=== PATIENT | female | born 1985 | race American Indian/Alaskan Native ===

== ENCOUNTER 2018-03-14 00:45 | Emergency (ER) | payer OTHER ==
[2018-03-14 01:32] VITALS: BMI 45.4
[2018-03-14] MEDS ORDERED: TraMADol/Apap 37.5/325 mg Tab PO STA (01:43)
--- NOTE | 2018-03-14 01:47 | ED PDOC ---
Arrival/HPI - General Historian: Patient - History of Present Illness Time/Duration: Other (see hpi) Quality: Aching Context: Home - General Chief Complaint: Dental Pain Time Seen by Provider: 03/14/18 01:41 - History of Present Illness Narrative History of Present Illness (Text): 03/14/18 01:44 This 32 yo female who denies pmh presents to this ED c/o left lower toothache x 1 day. Patient stated toothache worsen last few hours. Patient made an appointment to see her dentist on Friday. Patient denies sore throat, facial swelling, QUIROGA, fever, cough, or SOB. (Paul Casas) Past Medical History - Provider Review Nursing Documentation Reviewed: Yes - Past History Past History: No Previous - Tetanus Immunization Tetanus Immunization: Unknown - Past Medical History Past Medical History: No Previous - Musculoskeletal/Rheumatological Hx Falls: No - Gastrointestinal Hx Gastroesophageal Reflux: Yes - Genitourinary/Gynecological Hx Genitourinary Disorders: No - Psychiatric Hx Depression: No Hx Emotional Abuse: No Hx Physical Abuse: No Hx Substance Use: No - Past Surgical History Past Surgical History: No Previous - Anesthesia Hx Anesthesia: No - Suicidal Assessment Feels Threatened In Home Enviroment: No Family/Social History - Physician Review Nursing Documentation Reviewed: Yes Family/Social History: Other (noncontributory) Smoking Status: Never Smoked Hx Alcohol Use: Yes Hx Substance Use: No Hx Substance Use Treatment: No Allergies/Home Meds Allergies/Adverse Reactions: Allergies No Known Allergies Allergy (Verified 03/14/18 02:59) Review of Systems - Review of Systems Constitutional: Normal. absent: Fatigue, Weight Change, Fevers, Night Sweats Eyes: Normal ENT: Other (toothache) Respiratory: Normal. absent: SOB, Cough Cardiovascular: Normal. absent: Chest Pain Gastrointestinal: Normal. absent: Abdominal Pain, Nausea, Vomiting Genitourinary Female: Normal Musculoskeletal: Normal. absent: Back Pain, Neck Pain Skin: Normal. absent: Rash Neurological: Normal. absent: Headache, Dizziness, Focal Weakness, Gait Changes , Speech Changes, Facial Droop, Disequilibrium, Seizure Endocrine: Normal Hemo/Lymphatic: Normal Psychiatric: Normal Physical Exam Temperature: Afebrile Blood Pressure: Normal Pulse: Regular Respiratory Rate: Normal Appearance: Positive for: Well-Appearing, Non-Toxic, Comfortable Pain Distress: None Mental Status: Positive for: Alert and Oriented X 3 - Systems Exam Head: Present: Atraumatic, Normocephalic Pupils: Present: PERRL Extroacular Muscles: Present: EOMI Conjunctiva: Present: Normal Mouth: Present: Moist Mucous Membranes, Normal Lips, Normal Tounge, Normal Teeth. No: Drooling, Trismus Pharnyx: Present: Normal. No: ERYTHEMA, EXUDATE, TONSILS ENLARGED Neck: Present: Normal Range of Motion Upper Extremity: Present: Normal Inspection, Normal ROM Lower Extremity: Present: Normal Inspection, Normal ROM Neurological: Present: GCS=15, CN II-XII Intact, Speech Normal, Motor Func Grossly Intact, Normal Sensory Function, Normal Cerebellar Funct, Gait Normal, Memory Normal Skin: Present: Warm, Dry, Normal Color. No: Rashes Lymphatic: No: Cervical Adenopathy Psychiatric: Present: Alert, Oriented x 3, Normal Insight Vital Signs Temp Pulse Resp BP Pulse Ox 03/14/18 03:45 98.7 F 68 18 148/76 97 03/14/18 01:38 98.7 F 83 16 152/102 H 99 Medical Decision Making Re-evaluation Time: 01:48 Reassessment Condition: Re-examined, Improved ED Course and Treatment: 03/14/18 01:47 Re-evaluation. Patient feels better. Discussed results and plan with patient who expresses understanding. All questions answered and there is agreement with the plan to discharge home with instructions. Patient stable for discharge. Return if symptoms persist or worsen. (Paul Casas) - Medication Orders Current Medication Orders: Discontinued Medications Amoxicillin (Amoxil 500 Mg Cap) 500 mg PO STAT STA PRN Reason: Protocol Stop: 03/14/18 01:44 Last Admin: 03/14/18 02:20 Dose: 500 mg Ketorolac Tromethamine (Toradol) 30 mg IM STAT STA Stop: 03/14/18 01:44 Last Admin: 03/14/18 02:21 Dose: 30 mg MAR Pain Assessment Document 03/14/18 02:21 (Rec: 03/14/18 02:21 [id number]) Pain Reassessment Is this a pain reassessment? No Sleep Is patient sleeping during reassessment? No Presence of Pain Presence of Pain Yes Pain Scale Used Pain Scale Used Numeric IM Administration Charges Document 03/14/18 02:21 (Rec: 03/14/18 02:21 [id number]) Charges for Administration # of IM Administrations 1 Tramadol/Acetaminophen (Ultracet 37.5/325 Mg) 1 tab PO STAT STA Stop: 03/14/18 01:44 Last Admin: 03/14/18 02:18 Dose: 1 tab MAR Pain Assessment Document 03/14/18 02:18 (Rec: 03/14/18 02:19 [facility]-[id number]) Pain Reassessment Is this a pain reassessment? No Sleep Is patient sleeping during reassessment? No Presence of Pain Presence of Pain Yes Pain Scale Used Pain Scale Used Numeric Description Description Constant Disposition/Present on Arrival - Present on Arrival Any Indicators Present on Arrival: No History of DVT/PE: No History of Uncontrolled Diabetes: No Urinary Catheter: No History of Decub. Ulcer: No History Surgical Site Infection Following: None - Disposition Have Diagnosis and Disposition been Completed?: Yes Disposition Time: 01:50 Patient Plan: Discharge - Disposition Diagnosis: Toothache Disposition: HOME/ ROUTINE Condition: GOOD Discharge Instructions (ExitCare): Dental Pain (DC) Additional Instructions: Call private doctor for follow up visit in 1-2 days. call private dentist office on Friday for revaluation. Do not drive or operate machinery if you take Vicodin for at least 12 hours. Prescriptions: Chlorhexidine 0.12% [Peridex] 15 ml PO BID #1 bottle Hydrocodone/Acetaminophen [Vicodin Es 7.5-300 mg Tablet] 1 each PO Q4H PRN #10 tablet PRN Reason: Pain, Severe (8-10) Naproxen 500 mg PO BID PRN #14 tab PRN Reason: Pain, Severe (8-10) Referrals: [facility] [Outside] - Follow up with primary [facility] [Outside] - Follow up with primary Forms: [employer] (Angolan), WORK NOTE
[2018-03-14 01:53] VITALS: TEMP 98.7
[2018-03-14 03:46] VITALS: BP 148/76; PULSE 68; RESP 18; O2SAT 97
== END 2018-03-14 03:52 | disposition home or self-care (01) ==
LOC: ED 00:45
DX: K08.89 Other specified disorders of teeth and supporting structures (principal)
CPT/HCPCS: 81025; 96372; 99282; J1885

== ENCOUNTER 2018-03-16 20:28 | Emergency (ER) | payer OTHER ==
[2018-03-16 20:29] VITALS: BMI 45.4
[2018-03-16 21:55] VITALS: BP 185/119; PULSE 82; RESP 17; TEMP 99.1; O2SAT 98
--- NOTE | 2018-03-16 22:01 | ED PDOC ---
Arrival/HPI - General Chief Complaint: Dental Pain Time Seen by Provider: 03/16/18 20:30 Historian: Patient - History of Present Illness Narrative History of Present Illness (Text): 03/16/18 22:00 A 32 year old female presents to the emergency department complaining of left sided toothache. Patient reported to the emergency department three days ago, saw her dentist two days ago. Patient is scheduled to remove tooth tomorrow morning. Patient is taking antibiotics. Patient denies any fever or any other complaints at this time. Symptom Onset: Sudden Symptom Course: Unchanged Activities at Onset: Rest Context: Home Past Medical History - Provider Review Nursing Documentation Reviewed: Yes - Past History Past History: No Previous - Tetanus Immunization Tetanus Immunization: Unknown - Past Medical History Past Medical History: No Previous - Musculoskeletal/Rheumatological Hx Falls: No - Gastrointestinal Hx Gastroesophageal Reflux: Yes - Genitourinary/Gynecological Hx Genitourinary Disorders: No - Psychiatric Hx Psychophysiologic Disorder: No Hx Substance Use: No - Past Surgical History Past Surgical History: No Previous - Anesthesia Hx Anesthesia: No - Suicidal Assessment Feels Threatened In Home Enviroment: No Family/Social History - Physician Review Nursing Documentation Reviewed: Yes Family/Social History: No Known Family HX Smoking Status: Never Smoked Hx Alcohol Use: Yes Hx Substance Use: No Hx Substance Use Treatment: No Allergies/Home Meds Allergies/Adverse Reactions: Allergies No Known Allergies Allergy (Verified 03/16/18 21:24) Review of Systems - Physician Review All systems were reviewed & negative as marked: Yes - Review of Systems Constitutional: absent: Fevers ENT: Other (left sided tooth pain) Physical Exam Vital Signs Reviewed: Yes Vital Signs Temp Pulse Resp BP Pulse Ox 03/16/18 21:26 99.1 F 82 17 185/119 H 98 Temperature: Afebrile Blood Pressure: Hypertensive Pulse: Regular Respiratory Rate: Normal Appearance: Positive for: Well-Appearing, Non-Toxic, Comfortable Pain Distress: None Mental Status: Positive for: Alert and Oriented X 3 - Systems Exam Head: Present: Atraumatic, Normocephalic Pupils: Present: PERRL Extroacular Muscles: Present: EOMI Conjunctiva: Present: Normal Mouth: Present: Moist Mucous Membranes, Other (tenderness to palpation left lower molar) Neck: Present: Normal Range of Motion Respiratory/Chest: Present: Clear to Auscultation, Good Air Exchange. No: Respiratory Distress, Accessory Muscle Use Cardiovascular: Present: Regular Rate and Rhythm, Normal S1, S2. No: Murmurs Abdomen: No: Tenderness, Distention, Peritoneal Signs Back: Present: Normal Inspection Upper Extremity: Present: Normal Inspection. No: Cyanosis, Edema Lower Extremity: Present: Normal Inspection. No: Edema Neurological: Present: GCS=15, CN II-XII Intact, Speech Normal Skin: Present: Warm, Dry, Normal Color. No: Rashes Psychiatric: Present: Alert, Oriented x 3, Normal Insight, Normal Concentration Medical Decision Making ED Course and Treatment: 03/16/18 21:59 Impression: A 32 year old female with left sided toothache. Plan: -- Toradol -- Reassess and disposition Progress Notes: 03/17/18 16:37 pt due to see dentist [place]. toradol dosed. speaking full sentneces in nad. airway patent. - Medication Orders Current Medication Orders: Discontinued Medications Ketorolac Tromethamine (Toradol) 30 mg IM STAT STA Stop: 03/16/18 21:50 Last Admin: 03/16/18 22:22 Dose: 30 mg MAR Pain Assessment Document 03/16/18 22:22 (Rec: 03/16/18 22:23 RG [id number]) Pain Reassessment Is this a pain reassessment? Yes Location Left, Right or Bilateral Left Pain Location Body Site Face Description Description Constant IM Administration Charges Document 03/16/18 22:22 RG (Rec: 03/16/18 22:23 RG [id number]) Injection Site MAR Injection Site Left Deltoid Charges for Administration # of IM Administrations 1 - Scribe Statement The provider has reviewed the documentation as recorded by the Trinity Hernandez Provider Scribe Attestation: All medical record entries made by the Scribneeru were at my direction and personally dictated by me. I have reviewed the chart and agree that the record accurately reflects my personal performance of the history, physical exam, medical decision making, and the department course for this patient. I have also personally directed, reviewed, and agree with the discharge instructions and disposition. Disposition/Present on Arrival - Present on Arrival Any Indicators Present on Arrival: No History of DVT/PE: No History of Uncontrolled Diabetes: No Urinary Catheter: No History of Decub. Ulcer: No History Surgical Site Infection Following: None - Disposition Have Diagnosis and Disposition been Completed?: Yes Diagnosis: Toothache Disposition: HOME/ ROUTINE Disposition Time: 21:00 Condition: STABLE Discharge Instructions (ExitCare): Dental Pain (DC) Additional Instructions: follow up with your dentist. return to er with worsening symptoms or concerns. Referrals: Kanwal Haro Reandrey, [Non-Staff] - Follow up with primary Forms: [employer] (Hungarian)
== END 2018-03-16 22:43 | disposition home or self-care (01) ==
LOC: ED 20:28
DX: K08.89 Other specified disorders of teeth and supporting structures (principal)
CPT/HCPCS: 96372; 99283; J1885

== ENCOUNTER 2018-05-15 10:25 | Emergency (ER) | payer OTHER ==
[2018-05-15 10:27] VITALS: BMI 47.0
[2018-05-15 10:33] VITALS: RESP 18; TEMP 97.4
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
[2018-05-15 12:16] VITALS: BP 114/73; PULSE 61; O2SAT 98
--- NOTE | 2018-05-15 12:59 | RAD ---
PROCEDURE: Left Knee Radiographs. HISTORY: Pain. COMPARISON: None. FINDINGS: BONES: Normal. No fracture. JOINTS: Normal. No osteoarthritis. JOINT EFFUSION: None. OTHER FINDINGS: Patella unremarkable IMPRESSION: Normal radiographs of the left knee.
== END 2018-05-15 12:14 | disposition home or self-care (01) ==
LOC: ED 10:25
DX: S76.112A Strain of left quadriceps muscle, fascia and tendon, initial encounter (principal); W18.30XA Fall on same level, unspecified, initial encounter; M70.42 Prepatellar bursitis, left knee

== ENCOUNTER 2019-01-30 20:39 | Emergency (ER) | payer OTHER | END 2019-01-31 01:36 | disposition home or self-care (01) | LOC: ED 01-31 01:36 ==